=== PATIENT | male | born 1960 | race Caucasian/White ===

== ENCOUNTER 2016-11-16 17:10 | Emergency (ER) | payer SELFPAY ==
[~2016-11-16] VITALS: Ht 172.7 cm; Wt 81.8 kg
[2016-11-16] MEDS ORDERED: NABU500T3 PO (17:21)
[2016-11-16] MEDS ORDERED: TraMADol HCL 50 MG TABLET PO ONE (18:45)
[2016-11-16 19:00] LABS: ADD UA MICROSCOPIC NO; APPEARANCE,URINE CLEAR (CLEAR); GLUCOSE, URINE (UA) NEGATIVE (NEGATIVE); KETONES,URINE TRACE mg/dL (NEGATIVE); LEUKOCYTE ESTERASE ,URINE NEGATIVE (NEGATIVE); OCCULT BLOOD,URINE NEGATIVE (NEGATIVE); PH,URINE 6.5 (5.0-8.0); PROTEIN,URINE NEGATIVE (NEGATIVE)
[2016-11-16] MEDS ORDERED: KETOROLAC TROMETHAMINE 30 MG/ML VIAL IM ONE (19:45)
[2016-11-16 19:52] VITALS: BP 135/77
== END 2016-11-16 20:13 | disposition home or self-care (01) ==
LOC: EMS 17:13
DX: S39.012A Strain of muscle, fascia and tendon of lower back, initial encounter (principal); X58.XXXA Exposure to other specified factors, initial encounter; Y93.89 Activity, other specified; Y92.89 Other specified places as the place of occurrence of the external cause; Y99.8 Other external cause status
CPT/HCPCS: 81003; 96372; 99283; J1885